=== PATIENT | female | born 1970 | race American Indian/Alaskan Native ===

== ENCOUNTER 2019-08-20 07:30 | Day surgery (SDC) | payer MEDICARE, OTHER ==
--- NOTE | 2019-08-20 06:21 | Anesthesia Day of Surgery ---
Anesthesia Day of Surgery - Day of Surgery Patient Examined: Yes Patient H&P Reviewed: Yes Patient is NPO: Yes Beta Blockers: No Cardiac Clearance: No Pulmonary Clearance: No Gael's Test: N/A
--- NOTE | 2019-08-20 06:23 | Anesthesia Consultation ---
Anesthesia Consult and Med Hx Date of service: 08/20/19 - Airway Anesthetic Teeth Evaluation: Partials ROM Head & Neck: Adequate Mental/Hyoid Distance: Adequate Mallampati Class: Class III Intubation Access Assessment: Probably Good - Pulmonary Exam CTA: Yes - Cardiac Exam Cardiac Exam: RRR - Pre-Operative Health Status ASA Pre-Surgery Classification: ASA3 Proposed Anesthetic Plan: General - Pulmonary Hx Smoking: No Hx Asthma: Yes (PRN INHALER-LAST USED THIS MORNING) Hx Respiratory Symptoms: No SOB: No COPD: No Home Oxygen Therapy: No Hx Pneumonia: Yes (RESOLVED) Hx Sleep Apnea: No (TASHIA PRE SCREEN LOW RISK) - Cardiovascular System Hx Hypertension: No Hx Coronary Artery Disease: No Hx Heart Attack/AMI: No Hx Angina: No Hx Percutaneous Transluminal Coronary Angioplasty (PTCA): No Hx Cardia Arrhythmia: No Hx Pacemaker: No Hx Internal Defibrillator: No Hx Valvular Heart Disease: No Hx Heart Murmur: No Hx Peripheral Vascular Disease: No - Central Nervous System Hx Neuromuscular Disorder: No Hx Seizures: Yes (LAST SEIZURE 3 YRS AGO , OFF MEDS NOW) CVA: No Hx Back Pain: No Hx Psychiatric Problems: Yes - Gastrointestinal Hx Ulcer: Yes Hx Gastroesophageal Reflux Disease: No - Endocrine Hx Renal Disease: No Hx End Stage Renal Disease: No Hx Cirrhosis: No Hx Liver Disease: No Hx Insulin Dependent Diabetes: No Hx Non-Insulin Dependent Diabetes: No Hx Thyroid Disease: No Hx Hypothyroidism: No Hx Hyperthyroidism: No - Hematic Hx Anemia: No Hx Sickle Cell Disease: No - Other Systems Hx Alcohol Use: No Hx Substance Use: No Hx Cancer: No Hx Obesity: Yes (BMI=39.9)
[~2019-08-20 07:30] MED LIST: BACTERIOSTATIC SODIUM CHLORIDE 0.9% 30 ML VIAL INFILTRATI ONE; BUPIVACAINE-EPINEPHRINE/PF 0.5%-1:200,000 (30 ML) VIAL INFILTRATI ONE; HYDROmorphone 1 MG/1 ML INJ ONE; LACTATED RINGERS 1,000 ML IV SCH; MIDAZOLAM 2 MG/2 ML INJ ONE; VANCOMYCIN 1,000 MG in SODIUM CHLORIDE 0.9% 500 ML 500 ML IV ONE; VANCOMYCIN/NS 1 GM/250 ML 1 GM/250 ML BAG IV ONE; fentaNYL 100 MCG/2 ML INJ ONE
[2019-08-20] MEDS ORDERED: LIDOCAINE MPF (2%) 20 MG/1 ML VIAL 5 ML ONE (07:31)
[2019-08-20] MEDS ORDERED: propofoL 200 MG/20 ML VIAL IV ONE (07:31)
[2019-08-20] MEDS ORDERED: EPINEPHrine/PF 1 MG/1 ML INJ ONE (07:44)
[2019-08-20] MEDS ORDERED: MIDAZOLAM 2 MG/2 ML INJ ONE (07:52)
[2019-08-20] MEDS ORDERED: SODIUM CHLORIDE 0.9% IRRIG SOLN 3000 ML IR ONE ×2 (09:15)
[2019-08-20] MEDS ORDERED: ONDANSETRON 4 MG/2 ML INJ ONE (10:19)
--- NOTE | 2019-08-20 10:40 | Short Stay Summary ---
Short Stay Documentation - History H&P: obtained from office - Allergies and Medications Current Medications: Allergies latex Allergy (Verified 02/11/15 17:01) Itching methocarbamol [From Robaxin] Allergy (Verified 08/12/19 15:09) Seizure tramadol HCl [From Ultram] Allergy (Verified 02/11/15 17:01) Seizure Penicillins Adverse Reaction (Verified 02/11/15 17:01) Swelling tape Allergy (Uncoded 02/11/15 17:01) Itching WATERMELON Allergy (Uncoded 02/11/15 17:01) Shortness of Breath Home Medications Medication Instructions Recorded Confirmed Last Taken Type Albuterol Sulfate [Proventil Hfa] 2 puff IH PRN PRN 08/12/19 08/20/19 08/20/19 05:00 History Active Medications Lactated Ringer's (Lactated Ringers) 1,000 mls @ 100 mls/hr IV DIRECT AMA Last Admin: 08/20/19 07:10 Dose: 100 mls/hr Documented by: - Brief post op/procedure progress note Date of procedure: 08/20/19 Pre-op diagnosis: persistent right shoulder pain, posterior labral tear, partial rotator cuff Post-op diagnosis: same Procedure: right shoulder arthroscopy subacromial decompression, distal clavicle excision, posterior labral repair, debridement of extensive subacromial bursitis Anesthesia: GETA Findings: posterior labral tear Surgeon: BATSHEVA DE LA ROSA Estimated blood loss: minimal Pathology: none Condition: stable - Hospital course Hospital course: no perioperative complications - Disposition Condition at discharge: Stable Short Stay Discharge Plan Follow up with: WAYNE SOUZA MD [Primary Care Provider] - 7 Days
[2019-08-20 11:47] VITALS: BP 114/76
--- NOTE | 2019-08-20 13:35 | Operative Report ---
PREOPERATIVE DIAGNOSES: Persistent right shoulder pain, partial-thickness rotator cuff tear, full-thickness tear of the posterior labrum. POSTOPERATIVE DIAGNOSES: Persistent right shoulder pain, tear of the posterior labrum, partial bursal-sided tear of the rotator cuff and accounts approximately 10% of the width of the supraspinatus tendon and extensive subacromial bursitis. OPERATIVE PROCEDURE: Right shoulder arthroscopy, subacromial decompression, distal clavicle excision, debridement of extensive subacromial bursitis, arthroscopic repair of the posterior labral tear. SURGEON: Russell Tran M.D. STEREOPTIC PROJECTION TOPOGRAPHER: None. ANESTHESIA: General plus an interscalene block to the operative right upper extremity. PREOPERATIVE ANTIBIOTICS: Vancomycin 1 gram IV within 1 hour of skin incision. DVT PROPHYLAXIS: Open toe, thigh-high compression stockings and SCD pumps to bilateral lower extremities. OPERATIVE INSTRUMENTATION: Bioabsorbable corkscrew anchor with corresponding #2 co-braided sutures for the posterior labral repair. OPERATIVE COMPLICATIONS: None. OPERATIVE HISTORY AND PHYSICAL: This is a 48-year-old female who has had persistent progressive worsening right shoulder pain, which has failed to improve despite extensive nonoperative treatment. MRI scan was performed, which was positive for a partial-thickness tear of the rotator cuff as well as a tear of the posterior labrum. The patient's MRI findings and diagnosis were discussed at length. After making sure the patient understood that diagnosis, all questions were answered. We then discussed treatment alternatives of surgical and nonsurgical including risks and benefits of both. After a long lengthy discussion, the patient opted to proceed with operative intervention. This will entail a right shoulder arthroscopy, subacromial decompression, distal clavicle excision, arthroscopic repair of the posterior labrum, possible rotator cuff repair and surgery as indicated. The risks of which were discussed to include but not exclusive of infection, blood loss, nerve damage, loss of range of motion and persistent pain. Again, the patient understood, all of her questions were answered. She wished to proceed with operative intervention. DESCRIPTION OF PROCEDURE: The patient was seen in the preoperative holding room area, at which point informed consent was reviewed and appropriate right upper extremity was identified and then marked. Anesthesia then performed an interscalene block to the right upper extremity. After confirmation of adequate analgesia of the right upper extremity, the patient was then brought back to the operating room and placed supine on a standard operating room table with the beach chair positioner already in place. At this juncture, general anesthesia was then administered and an LMA tube was inserted. After confirmation of adequate general anesthesia and checking appropriate placement of the LMA tube, we then made sure that all bony prominences were well padded. We made sure that there were no wrinkles in the compression stockings on bilateral lower extremities and SCD pumps were applied to bilateral lower extremities. A pillow was placed beneath the posterior aspect of bilateral thighs, placed in slight flexion at the hips and knees, making sure the popliteal fossa was free and clear. An egg-crate was placed on the heels. The well arm was secured in neutral position with aid of the well arm zhang. The patient was then sat up in the beach chair position using the beach chair position, which was already in place and the head was secured in a nice neutral position. Following this, the right upper extremity was then examined under anesthesia. The patient was seen to have full range of motion with some slight posterior instability. Following this, the right upper extremity was then prepped and draped in the usual sterile fashion. After prepping and draping, a timeout was called and appropriate right upper extremity was identified, which again had been marked in the preoperative holding room area. We began the procedure by first making a standard posterior portal with a #15 blade. Once the portal was established, the cannula with the blunt trocar was inserted into the intraarticular aspect of the glenohumeral joint. This went without difficulty or damage to articular cartilage. Once in place, arthroscopic camera was then placed in the anterior aspect of shoulder joint. We established an anterior portal by first inserting an 18-gauge spinal needle between the subscap and biceps tendons under direct arthroscopic visualization. Once confirmed to be in appropriate position, a 15 blade was then used establish the portal again under direct arthroscopic visualization. Once the portal was established, the blunt trocar was inserted to widen the portal site. Following that, an arthroscopic probe was inserted. From there, diagnostic arthroscopy was performed. The patient was seen to have some minor wear of the anterior and superior labrum, although the posterior labrum was torn and there was some slight posterior instability when observed arthroscopically. There was some mild articular cartilage wear of the glenoid and labrum. The biceps tendon was seen to be intact and exiting the shoulder in its normal relation. The subscapularis tendon was seen to be intact and normal in its relation. The middle glenohumeral ligament was also intact and stable when probed. Inspection of rotator cuff on the articular side showed it to be intact without any tears present. The switching stick was then used to transfer the arthroscopic camera from the posterior to the anterior portal and then an 8.5 clear cannulated corkscrew cannula was inserted. From there, we debrided the posterior labral tear. We debrided all the scar tissue from the glenoid rim and 1-2 mm of articular cartilage was removed from the articular surface of the glenoid. Following this, a suture was passed using Tran and [employer] SpeedLock suture passer, and once the suture was passed, TPS was used to drill, and then once drilled, the bioabsorbable corkscrew anchor was then inserted under direct arthroscopic visualization. Once completed, the repair was probed and seen to be stable. There was no further instability of the humeral head within the glenoid. Following this, arthroscopic pump was turned off to make sure there was good hemostasis, so once this was confirmed, the extraneous fluid was suctioned from the glenohumeral joint using arthroscopic cannula. Following this, all the arthroscopic instrumentation was removed from the glenohumeral joint and then placed in the subacromial space. Once in the subacromial space, we saw there was severe extensive subacromial bursitis. A third incision was made in the lateral aspect of the shoulder in line with distal clavicle away from the axillary nerve. Once made, the extensive subacromial bursitis was debrided using 4.0 meniscal shaver and hemostasis was achieved with the Tran and Nephew ablation wand. Once completed, the arm was placed to full range of motion. Direct arthroscopic visualization showed there was severe impingement of the rotator cuff upon undersurface of the acromion in the distal clavicle. The soft tissue was then removed from the undersurface of the acromion using the Tran and Nephew ablation wand, and once completed, the 4.0 hooded barrel bur was used to carry subacromial decompression in standard fashion from inferior to superior, posterior and anterior making sure not to leave any residual anterior hook. We then turned our attention to the distal clavicle and then using a 4.0 hooded barrel bur carrying out a distal clavicle excision to a depth of approximately 6-8 mm. Once completed, the arm was placed to full range of motion. Again, under direct arthroscopic visualization, we saw there was no further impingement of the rotator cuff undersurface on the acromion or the distal clavicle. The arthroscopic pump was then turned off to making sure there was good hemostasis. We then inspected the rotator cuff on the bursal side, which showed that there was a partial thickness tear involving approximately 10% of the supraspinatus tendon. This was debrided in standard fashion. Once completed, arthroscopic pump was turned off making sure there was good hemostasis. Once this was confirmed, a straight full suction in the subacromial space using arthroscopic cannula. Following this, arthroscopic instrumentation was removed. The 3 portal sites were closed with 3-0 nylon in simple fashion. Adaptic, 4 x 4, ABD, Medipore paper tape, small abduction sling was applied. The patient was then awakened from general anesthesia without complications and sat down from beach chair in supine position, was taken to recovery room in stable condition and standard postoperative orders were written. JOB# [id number] BRYAN/KAROLINE
--- NOTE | 2019-08-20 14:39 | Post Anesthesia Evaluation ---
- Post Anesthesia Evaluation Patient Participated: Yes Airway Patent: Yes Stable Respiratory Function: Yes Nausea/Vomiting: No Temp > 96.8F: Yes Pain Manageable: Yes Adequeate Hydration: Yes Anesthesia Complications: No Block Receding Appropriately: Not Applicable Patient on Ventilator: No
== END 2019-08-20 07:31 | disposition home or self-care (01) ==
LOC: OR 07:30
PROVIDERS: ATTEND Orthopaedic Surgery
DX: M75.101 Unspecified rotator cuff tear or rupture of right shoulder, not specified as traumatic (principal); S43.401A Unspecified sprain of right shoulder joint, initial encounter; Z11.59 Encounter for screening for other viral diseases; M75.51 Bursitis of right shoulder; E66.01 Morbid (severe) obesity due to excess calories; F31.9 Bipolar disorder, unspecified; G40.909 Epilepsy, unspecified, not intractable, without status epilepticus; G43.909 Migraine, unspecified, not intractable, without status migrainosus; J45.909 Unspecified asthma, uncomplicated; K21.9 Gastro-esophageal reflux disease without esophagitis; F41.9 Anxiety disorder, unspecified; Z79.899 Other long term (current) drug therapy; Z91.040 Latex allergy status; Z88.0 Allergy status to penicillin; Z68.42 Body mass index [BMI] 45.0-49.9, adult; Z96.641 Presence of right artificial hip joint; Z90.49 Acquired absence of other specified parts of digestive tract; Z90.710 Acquired absence of both cervix and uterus; Z90.721 Acquired absence of ovaries, unilateral; Z87.440 Personal history of urinary (tract) infections; Z98.890 Other specified postprocedural states; Z82.49 Family history of ischemic heart disease and other diseases of the circulatory system; Z88.8 Allergy status to other drugs, medicaments and biological substances; Y92.89 Other specified places as the place of occurrence of the external cause; X58.XXXA Exposure to other specified factors, initial encounter; Y93.89 Activity, other specified; Y99.8 Other external cause status
CPT/HCPCS: 29806; 29824; 29826; A4217; C1713; J0171; J1170; J2250; J2405; J2704; J3010; J3370; J7120; U0003